=== PATIENT | male | born 1965 | race Caucasian/White ===

== ENCOUNTER 2018-11-03 04:12 | Emergency (ER) | payer OTHER, BC ==
--- OUTSIDE RECORDS SUMMARY | 2018-11-03 04:15 | XMS REPORT | Clinical Summary ---
:1965 Author Organization [facility] Address [address] [place] [address] Care Team Providers Name Role Phone Zuhair Rubi MD Primary Care Provider Allergies Active Allergy Reactions Severity Noted Date Comments Codeine GI Intolerance 08/04/2018 Medications Medication Sig Dispensed Refills Start Date End Date Status ciprofloxacin (CIPRO) Take 1 tablet 14 tablet 0 08/04/2018 08/11/2018 500 MG tablet (500 mg total) by mouth 2 (two) times a day for 7 days. metroNIDAZOLE (FLAGYL) Take 1 tablet 14 tablet 0 08/04/2018 08/11/2018 500 MG tablet (500 mg total) by mouth 2 (two) times a day for 7 days. 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 (Primary Dx) 08/04/2018 - Emergency Emergency Medicine Jeromy Mathur Diverticulitis ( Primary Dx); 08/05/2018 MD Lorri Colostomy in place (HCC) after 11/02/2017 Family History Medical History Relation Name Comments Diabetes Mother Hypertension Mother Relation Name Status Comments Mother Social History Tobacco Use Types Packs/Day Years Used Date Current Every Day Smoker Smokeless Tobacco: Never Used Alcohol Use Drinks/Week oz/Week Comments Yes Sex Assigned at Date Recorded Not on file Job Start Date Occupation Industry Not on file Not on file Not on file Travel History Travel Start Travel End No recent travel history available. Last Filed Vital Signs Vital Sign Reading Time Taken Blood Pressure 110/83 08/10/2018 12:44 PM [facility] Pulse 69 08/10/2018 12:44 PM [employer] [employer] Temperature 36.7 C (98.1 F) 08/04/2018 6:27 PM [facility] Respiratory Rate 18 08/04/2018 6:27 PM [employer] [employer] Oxygen Saturation 97% 08/04/2018 6:27 PM [employer] [employer] Inhaled Oxygen Concentration - - Weight 109 kg (240 lb) 08/04/2018 6:30 PM [employer] Height 175.3 cm (5' 9") 08/04/2018 6:30 PM [facility] Body Mass Index 35.44 08/04/2018 6:30 PM [facility] Plan of Treatment Health Maintenance Due Date Last Done Comments COLON CANCER SCREENING 2014 SHINGLES VACCINES (#1) 2014 INFLUENZA VACCINE 02/24/2019 Procedures Procedure Name Priority Date/Time Associated Comments Diagnosis CT ABDOMEN PELVIS WO STAT 08/04/2018 10:48 Results for this CONTRAST PM [facility] procedure are in the results section. ESTIMATED GFR STAT 08/04/2018 8:51 Results for this PM [facility] procedure are in the results section. COMPREHENSIVE STAT 08/04/2018 8:51 Results for this METABOLIC PANEL PM [facility] [employer] procedure are in the results section. HC COMPLETE BLD COUNT STAT 08/04/2018 8:51 Results for this W/AUTO DIFF PM [facility] procedure are in the results section. XR ABDOMEN 2 VW AP W STAT 08/04/2018 7:20 Results for this UPRIGHT AND/OR PM [facility] [employer] procedure are in DECUBITUS the results section. after 11/02/[address] Abdomen Pelvis Wo Contrast (08/04/2018 10:48 PM [facility]) Narrative Performed At EXAM: CT ABDOMEN PELVIS WO CONTRAST HM RADIANT CLINICAL HISTORY:constipation. Hx of colectomylooking for obstruction TECHNIQUE: Multidetector CT of the abdomen and pelvis was performed without intravenous administration of iodinated contrast with multiplanar reformats. CT scans are performed using radiation dose reduction techniques (iterative reconstruction and/or automated exposure control). Technical factors are evaluated and adjusted to ensure appropriate moderation of exposure. Automated dose management technology is applied to adjust radiation exposure while achieving a diagnostic quality image. COMPARISON:Abdominal radiograph, same day FINDINGS: Evaluation of the parenchyma, lymph nodes, and the vessels is limited without intravenous contrast. Lung bases: Dependent atelectasis. Otherwise unremarkable. Liver:No evidence for suspicious focal hepatic lesion. Gallbladder and biliary:Unremarkable. Pancreas:No focal pancreatic lesion identified. No pancreatic duct dilatation. Spleen: Unremarkable. Gastrointestinal:Stomach is unremarkable in appearance. Large and small bowel are normal in caliber. Appendix is visualized and appears normal. Scattered colonic diverticula identified. There is distal descending/proximal sigmoid diverticular inflammatory changes (for example, axial image 97, series 2), consistent with acute diverticulitis. No pericolonic abscess or fistulization is identified. No perforation is seen. Distal sigmoid primary anastomosis is also noted. Peritoneum:No ascites or free air. Adrenals: Unremarkable. Kidneys and ureters:There is no evidence for large irregular renal mass, obstructing calculi, hydronephrosis, or hydroureter. Urinary bladder: Unremarkable. Reproductive organs:Prostate is unremarkable in appearance. Lymph nodes:No enlarged lymph nodes in the abdomen or pelvis. Vascular:Unremarkable, though evaluation of vessel lumens is limited due to lack of IV contrast. Abdominal wall:Unremarkable. Bones:No acute osseous abnormality identified. IMPRESSION: 1.Scattered colonic diverticula identified. There is distal descending/proximal sigmoid diverticular inflammatory changes (for example, axial image 97, series 2), consistent with acute diverticulitis. No pericolonic abscess or fistulization is identified. No perforation is seen. [facility]-[id number] Procedure Note [facility], Radiology Results Incoming - 08/04/2018 11:00 PM [facility] EXAM: CT ABDOMEN PELVIS WO CONTRAST CLINICAL HISTORY: constipation. Hx of colectomy looking for obstruction TECHNIQUE: Multidetector CT of the abdomen and pelvis was performed without intravenous administration of iodinated contrast with multiplanar reformats. CT scans are performed using radiation dose reduction techniques (iterative reconstruction and/or automated exposure control). Technical factors are evaluated and adjusted to ensure appropriate moderation of exposure. Automated dose management technology is applied to adjust radiation exposure while achieving a diagnostic quality image. COMPARISON: Abdominal radiograph, same day FINDINGS: Evaluation of the parenchyma, lymph nodes, and the vessels is limited without intravenous contrast. Lung bases: Dependent atelectasis. Otherwise unremarkable. Liver: No evidence for suspicious focal hepatic lesion. Gallbladder and biliary: Unremarkable. Pancreas: No focal pancreatic lesion identified. No pancreatic duct dilatation. Spleen: Unremarkable. Gastrointestinal: Stomach is unremarkable in appearance. Large and small bowel are normal in caliber. Appendix is visualized and appears normal. Scattered colonic diverticula identified. There is distal descending/proximal sigmoid diverticular inflammatory changes (for example, axial image 97, series 2), consistent with acute diverticulitis. No pericolonic abscess or fistulization is identified. No perforation is seen. Distal sigmoid primary anastomosis is also noted. Peritoneum: No ascites or free air. Adrenals: Unremarkable. Kidneys and ureters: There is no evidence for large irregular renal mass, obstructing calculi, hydronephrosis, or hydroureter. Urinary bladder: Unremarkable. Reproductive organs: Prostate is unremarkable in appearance. Lymph nodes: No enlarged lymph nodes in the abdomen or pelvis. Vascular: Unremarkable, though evaluation of vessel lumens is limited due to lack of IV contrast. Abdominal wall: Unremarkable. Bones: No acute osseous abnormality identified. IMPRESSION: 1. Scattered colonic diverticula identified. There is distal descending/ proximal sigmoid diverticular inflammatory changes (for example, axial image 97 , series 2), consistent with acute diverticulitis. No pericolonic abscess or fistulization is identified. No perforation is seen. [facility]-[id number] Performing Organization Address City/[facility]/Zipcode Phone Number [facility] [address] [place] [address] Estimated GFR (08/04/2018 8:51 PM [employer] [employer]) Estimated GFR >=90 mL/min/1.73 m2 [facility] Comment: HOSPITAL CatergoryUnitsInterpretation G1 >=90 Normal or high G2 60-89Mildly decreased [id number] to moderately decreased [id number] to severely decreased G4 15-29Severely decreased G5 <15Kidney failure The eGFR was calculated using the Chronic Kidney Disease Epidemiology Collaboration (CKD-EPI) equation. Interpretation is based on recommendations of the National Kidney Foundation-Kidney Disease Outcomes Quality Initiative (NKF-KDOQI) published in 2014. Specimen Plasma specimen Performing Organization Address [facility] Cent[facility] Phone Number [facility] DEPARTMENT OF PATHOLOGY AND [address] [place] [address] GENOMIC MEDICINE [address] [address] CBC with platelet and differential (08/04/2018 8:51 PM [employer] [employer]) WBC 9.05 4.50 - 11.00 k/uL [facility] RBC 4.29 (L) 4.40 - 6.00 m/uL [facility] HGB 14.8 14.0 - 18.0 g/dL [facility] HCT 44.3 41.0 - 51.0 % [facility] MCV 103.3 (H) 82.0 - 100.0 fL [facility] MCH 34.5 (H) 27.0 - 34.0 pg [facility] MCHC 33.4 31.0 - 37.0 g/dL [facility] RDW - SD 49.1 37.0 - 55.0 fL [facility] MPV 11.1 8.8 - 13.2 fL [facility] Platelet count 182 150 - 400 k/uL [facility] Nucleated RBC 0.00 /100 WBC [facility] Neutrophils 58.4 39.0 - 69.0 % [facility] Lymphocytes 27.1 25.0 - 45.0 % [facility] Monocytes 11.9 (H) 0.0 - 10.0 % [facility] Eosinophils 1.5 0.0 - 5.0 % [facility] Basophils 0.7 0.0 - 1.0 % [facility] Immature granulocytes 0.4Comment: "Immature 0.0 - 1.0 % [facility]" [facility] (promyelocytes, myelocytes, metamyelocytes) Specimen Blood Performing Organization Address City/State/Zipcode Phone Number [facility] DEPARTMENT OF PATHOLOGY AND [address] [place] [address] GENOM[address] MEDICINE [address] [address] Comprehensive metabolic panel (08/04/2018 8:51 PM [facility]) Sodium 137 135 - 148 mEq/L [facility] Potassium 4.0 3.5 - 5.0 mEq/L [facility] Chloride 96 (L) 98 - 112 mEq/L [facility] CO2 26 24 - 31 mEq/L [facility] Anion gap 15@ANIO 7 - 15 mEq/L [facility] BUN 11 6 - 20 mg/dL [facility] Creatinine 0.95 0.70 - 1.20 mg/dL [facility] Glucose 128 (H) 65 - 99 mg/dL [facility] Calcium 9.4 8.3 - 10.2 mg/dL [facility] Protein 7.4 6.3 - 8.3 g/dL [facility] Comment: HOSPITAL Reasnor 4.6-7.0 g/dL 1 week 4.4-7.6 g/dL 7 months-1year5.1-7.3 g/dL 1-2 years5.6-7.5 g/dL >3 years6.0-8.0 g/dL 18-150 6.3-8.3 g/dL Albumin 3.2 (L) 3.5 - 5.0 g/dL [facility] A/G ratio 0.8 0.7 - 3.8 [facility] Alkaline phosphatase 54 40 - 129 U/L [facility] AST 23 10 - 50 U/L [facility] ALT 32 5 - 50 U/L [facility] Total bilirubin 0.6 0.0 - 1.2 mg/dL [facility] Specimen Plasma specimen Performing Organization Address [facility] Phone Number [facility] DEPARTMENT OF PATHOLOGY AND [address] [place] [address] GENOMIC MEDICINE [facility] [address] [place] [address] XR Abdomen 2 Vw Ap W Upright And/Or Decubitus (08/04/2018 7:20 PM [facility]) Narrative Performed At EXAMINATION:XR ABDOMEN 2 VW AP W UPRIGHT AND OR DECUBITUS RADIANT CLINICAL HISTORY:Abd painunspecified COMPARISON:None. FINDINGS: There is gas in the colon. Mildly prominent loops of small bowel in left upper quadrant are nonspecific. There is no free air. IMPRESSION: As above [id number] Procedure Note Interface, Radiology Results Incoming - 08/04/2018 7:28 PM [facility] [employer] EXAMINATION: XR ABDOMEN 2 VW AP W UPRIGHT AND OR DECUBITUS CLINICAL HISTORY: Abd pain unspecified COMPARISON: None. FINDINGS: There is gas in the colon. Mildly prominent loops of small bowel in left upper quadrant are nonspecific. There is no free air. IMPRESSION: As above [id number] Performing Organization Address [facility] Phone Number [facility] [address] [place] [address] after 11/02/2017 Insurance Payer Benefit Plan / Group Subscriber ID Type Phone Address AETNA AETNA PPO OPEN CHOICE xxxxxxxxxx PPO BCBS BCBS CHOICE PPO/F[employer]ERAL EMPL PPO xxxxxxxxxxxx PPO Advance Directives Patient has advance care planning documents on file. For more information, please contact:Antelmo Posadas[address] [place] [address]
[2018-11-03] MEDS ORDERED: FAMOTIDINE 20 MG/2 ML VIAL IV ONE (05:12)
[2018-11-03] MEDS ORDERED: HYDROMORPHONE HCL 0.5 MG/0.5 ML INJ ONE (05:12)
[2018-11-03] MEDS ORDERED: ONDANSETRON 4 MG/2 ML VIAL ONE (05:15)
[2018-11-03 05:51] LABS: Absolute Lymphocytes (CBC) 2.3 K/uL (0.7-4.9); Absolute Monocytes 0.5 K/uL (0.1-1.3); Absolute Neutrophil 2.1 K/uL (1.8-8.0); Basophils % 1.2 % (0-1.3); Eosinophils % 5.1 % (0-4.4); Hematocrit 46.3 % (39.6-49.0); Lymphocytes % 43.3 % (15.3-44.8); MPV 9.5 fL (7.6-11.3); Monocytes % 10.1 % (3.3-12.3)
[2018-11-03 05:52] LABS: Albumin 3.7 g/dL (3.4-5.0); Bilirubin Direct 0.3 mg/dL (0-0.2); Bilirubin Total 0.6 mg/dL (0.2-1.0); Potassium 3.8 mmol/L (3.5-5.1); Protein, Total 7.6 g/dL (6.4-8.2)
[2018-11-03] MEDS ORDERED: PIPER/TAZO/NS 3.375gm 3.375 GM/100 ML BAG ONE (07:06)
--- NOTE | 2018-11-03 07:35 | ER ---
Nurse's Notes [facility] Name: Devonte Vaca Age: 53 yrs Sex: Male : 1965 Arrival Date: 11/03/2018 Time: 04:13 Bed 7 Private MD: Zuhair Rubi Diagnosis: Abdominal tenderness;Cholelithiasis Presentation: 11/03 04:34 Presenting complaint: Patient states: sudden onset of RUQ pain that woke him up from aa1 sleep at approx 0200 this am. Denies N/V/D. Transition of care: patient was not received from another setting of care. Onset of symptoms was November 03, 2018 at 02:00. Risk Assessment: Do you want to hurt yourself or someone else? Patient reports no desire to harm self or others. Initial Sepsis Screen: Does the patient meet any 2 criteria? No. Patient's initial sepsis screen is negative. Does the patient have a suspected source of infection? Yes: Acute abdominal pain. Care prior to arrival: None. 04:34 Method Of Arrival: Ambulatory aa1 04:34 Acuity: LIANG 3 aa1 Triage Assessment: 07:00 General: Appears in no apparent distress. comfortable, Behavior is calm, cooperative, bp appropriate for age. Historical: - Allergies: 04:36 Codeine; aa1 - Home Meds: 04:36 Unable to obtain [Active]; aa1 - PMHx: 04:36 Diverticulitis; High Cholesterol; Hypertension; melanoma; aa1 - PSHx: 04:36 Partial colon removal; aa1 - Immunization history:: Flu vaccine is not up to date. - Social history:: Smoking status: Patient/guardian denies using tobacco. - Ebola Screening: : No symptoms or risks identified at this time. Screenin:37 Abuse screen: Denies threats or abuse. Denies injuries from another. Nutritional aa1 screening: No deficits noted. Tuberculosis screening: No symptoms or risk factors identified. Fall Risk None identified. Assessment: 04:37 General: Appears in no apparent distress. comfortable, Behavior is calm, cooperative, aa1 appropriate for age. Pain: Complains of pain in right upper quadrant Pain currently is 9 out of 10 on a pain scale. Pain began 2 hours ago. Is continuous. Neuro: Level of Consciousness is awake, alert, obeys commands, Oriented to person, place, time, situation, Moves all extremities. Full function Gait is steady. Cardiovascular: Denies chest pain, palpitations, shortness of breath, Heart tones S1 S2 present. Respiratory: Airway is patent Respiratory effort is even, unlabored, Respiratory pattern is regular, symmetrical. GI: Reports upper abdominal pain, Patient currently denies diarrhea, nausea, vomiting. : No signs and/or symptoms were reported regarding the genitourinary system. EENT: No signs and/or symptoms were reported regarding the EENT system. Derm: Skin is intact, is healthy with good turgor, Skin is pink, warm \T\ dry. Musculoskeletal: Circulation, motion, and sensation intact. Capillary refill < 3 seconds. 05:54 Reassessment: Patient appears in no apparent distress at this time. Patient and/or aa1 family updated on plan of care and expected duration. Pain level reassessed. Patient is alert, oriented x 3, equal unlabored respirations, skin warm/dry/pink. Awaiting CT scan. 06:39 Reassessment: Patient appears in no apparent distress at this time. Patient and/or aa1 family updated on plan of care and expected duration. Pain level reassessed. Patient is alert, oriented x 3, equal unlabored respirations, skin warm/dry/pink. Pt taken to CT at this time. 07:00 Reassessment: RECD REPORT FROM NENO LARA. 53YO WM P/W R FLANK PAIN, R/O bp NEPHROLITHIASIS. RESULTS PENDING. 08:01 Reassessment: PT D/C HOME AMBULATORY WITH FAMILY, DX WITH CHOLELITHIASIS. bp Vital Signs: 04:36 BP 129 / 87; Pulse 65; Resp 18; Temp 97.2; Pulse Ox 95% on R/A; Weight 106.59 kg; aa1 Height 5 ft. 9 in. (175.26 cm); Pain 9/10; 05:54 BP 117 / 75; Pulse 66; Resp 16; Pulse Ox 94% on R/A; aa1 06:38 BP 106 / 74; Pulse 76; Resp 16; Pulse Ox 92% on R/A; aa1 07:00 BP 99 / 74; Pulse 69; Resp 14; Pulse Ox 95% ; bp 07:57 BP 104 / 67 Supine; Pulse 82; Resp 16; Pulse Ox 95% on R/A; dh3 07:59 BP 116 / 80 Sitting; Pulse 89; Resp 18; Pulse Ox 94% on R/A; dh3 08:01 BP 108 / 82 Standing; Pulse 88; Resp 19; Pulse Ox 97% on R/A; dh3 04:36 Body Mass Index 34.70 (106.59 kg, 175.26 cm) aa1 ED Course: 04:13 Patient arrived in ED. am2 04:14 Zuhair Rubi MD is Private Physician. am2 04:33 Leoncio Ordaz MD is Attending Physician. ahsan 04:35 Triage completed. aa1 04:37 Arm band placed on right wrist. aa1 04:37 Patient has correct armband on for positive identification. Placed in gown. Bed in low aa1 position. Call light in reach. Pulse ox on. NIBP on. 05:00 Inserted saline lock: 20 gauge in right antecubital area, using aseptic technique. oe Blood collected. 05:16 X-ray completed. Portable x-ray completed in exam room. Patient tolerated procedure kw well. 05:17 Chest Single View XRAY In Process Unspecified. EDMS 05:55 CT completed. Patient tolerated procedure well. Patient moved to CT via wheelchair. eh Patient moved back from CT. 06:05 CT Stone Protocol In Process Unspecified. EDMS 07:24 Zuhair Molina, RN is Primary Nurse. bp 07:34 Zuhair Rubi MD is Referral Physician. ahsan 07:34 Fly Lim MD is Referral Physician. ahsan 07:38 US Abdomen Limited In Process Unspecified. EDMS 08:01 No provider procedures requiring assistance completed. IV discontinued, intact, bp bleeding controlled, No redness/swelling at site. Pressure dressing applied. Administered Medications: 05:05 Drug: Zofran 4 mg Route: IVP; Site: right antecubital; aa1 07:02 Follow up: Response: No adverse reaction; Marked relief of symptoms aa1 05:07 Drug: Pepcid 20 mg Route: IVP; Site: right antecubital; aa1 07:02 Follow up: Response: No adverse reaction; Marked relief of symptoms aa1 05:08 Drug: Dilaudid 0.5 mg Route: IVP; Site: right antecubital; aa1 07:02 Follow up: Response: No adverse reaction; Pain is decreased aa1 07:02 Drug: Zosyn 3.375 grams Route: IVPB; Infused Over: 60 mins; Site: right antecubital; aa1 07:30 Follow up: IV Status: Completed infusion; IV Intake: 100ml bp Intake: 07:30 IV: 100ml; Total: 100ml. bp Outcome: 07:34 Discharge ordered by . ahsan 08:01 Discharged to home ambulatory, with family. bp 08:01 Condition: stable 08:01 Discharge instructions given to patient, Instructed on discharge instructions, follow up and referral plans. medication usage, Demonstrated understanding of instructions, follow-up care, medications, Prescriptions given X 3. 08:08 Patient left the ED. bp Signatures: Dispatcher [employer] EDMS Neno Santizo RN RN aa1 Leoncio Ordaz MD MD cha Hagler, Letitia Montano Orlando oe Moreno, Amanda 2 Gin Avery 3 Zuhair Molina RN RN bp Corrections: (The following items were deleted from the chart) 05:13 05:12 Inserted saline lock: 20 gauge in right antecubital area, using aseptic oe technique. Blood collected. oe 06:39 05:54 Reassessment: Patient appears in no apparent distress at this time. Patient aa1 and/or family updated on plan of care and expected duration. Pain level reassessed. Patient is alert, oriented x 3, equal unlabored respirations, skin warm/dry/pink. Awaiting CT results aa1
--- NOTE | 2018-11-03 07:35 | EDPHYS ---
Physician Documentation [facility] Name: Devonte Vaca Age: 53 yrs Sex: Male : 1965 Arrival Date: 11/03/2018 Time: 04:13 Bed 7 Private MD: Zuhair Rubi ED Physician Leoncio Ordaz HPI: 11/03 04:53 This 53 yrs old Male presents to ER via Ambulatory with complaints of Flank ahsan Pain - right side. 04:53 The patient complains of pain in the right mid back and right low back. The pain does ahsan not radiate. Onset: The symptoms/episode began/occurred this morning. Modifying factors: The symptoms are alleviated by nothing. the symptoms are aggravated by movement, palpation/percussion. Associated signs and symptoms: The patient has no apparent associated signs or symptoms. Severity of pain: At its worst the pain was moderate. The patient has experienced similar episodes in the past, a few times. Historical: - Allergies: 04:36 Codeine; aa1 - Home Meds: 04:36 Unable to obtain [Active]; aa1 - PMHx: 04:36 Diverticulitis; High Cholesterol; Hypertension; melanoma; aa1 - PSHx: 04:36 Partial colon removal; aa1 - Immunization history:: Flu vaccine is not up to date. - Social history:: Smoking status: Patient/guardian denies using tobacco. - Ebola Screening: : No symptoms or risks identified at this time. ROS: 04:54 Constitutional: Negative for fever, chills, and weight loss, Eyes: Negative for injury, hasan pain, redness, and discharge, ENT: Negative for injury, pain, and discharge, Neck: Negative for injury, pain, and swelling, Cardiovascular: Negative for chest pain, palpitations, and edema, Respiratory: Negative for shortness of breath, cough, wheezing, and pleuritic chest pain, Back: Negative for injury and pain, : Negative for injury, bleeding, discharge, and swelling, MS/Extremity: Negative for injury and deformity, Skin: Negative for injury, rash, and discoloration, Neuro: Negative for headache, weakness, numbness, tingling, and seizure, Psych: Negative for depression, anxiety, suicide ideation, homicidal ideation, and hallucinations, Allergy/Immunology: Negative for hives, rash, and allergies, Endocrine: Negative for neck swelling, polydipsia, polyuria, polyphagia, and marked weight changes, Hematologic/Lymphatic: Negative for swollen nodes, abnormal bleeding, and unusual bruising. 04:54 Abdomen/GI: Positive for abdominal pain, of the right upper quadrant. Exam: 04:54 Constitutional: This is a well developed, well nourished patient who is awake, alert, ahsan and in no acute distress. Head/Face: Normocephalic, atraumatic. Eyes: Pupils equal round and reactive to light, extra-ocular motions intact. Lids and lashes normal. Conjunctiva and sclera are non-icteric and not injected. Cornea within normal limits. Periorbital areas with no swelling, redness, or edema. ENT: Nares patent. No nasal discharge, no septal abnormalities noted. Tympanic membranes are normal and external auditory canals are clear. Oropharynx with no redness, swelling, or masses, exudates, or evidence of obstruction, uvula midline. Mucous membranes moist. Neck: Trachea midline, no thyromegaly or masses palpated, and no cervical lymphadenopathy. Supple, full range of motion without nuchal rigidity, or vertebral point tenderness. No Meningismus. Chest/axilla: Normal chest wall appearance and motion. Nontender with no deformity. No lesions are appreciated. Cardiovascular: Regular rate and rhythm with a normal S1 and S2. No gallops, murmurs, or rubs. Normal PMI, no JVD. No pulse deficits. Respiratory: Lungs have equal breath sounds bilaterally, clear to auscultation and percussion. No rales, rhonchi or wheezes noted. No increased work of breathing, no retractions or nasal flaring. Back: No spinal tenderness. No costovertebral tenderness. Full range of motion. Male : Normal genitalia with no discharge or lesions. Skin: Warm, dry with normal turgor. Normal color with no rashes, no lesions, and no evidence of cellulitis. MS/ Extremity: Pulses equal, no cyanosis. Neurovascular intact. Full, normal range of motion. Neuro: Awake and alert, GCS 15, oriented to person, place, time, and situation. Cranial nerves II-XII grossly intact. Motor strength 5/5 in all extremities. Sensory grossly intact. Cerebellar exam normal. Normal gait. Psych: Awake, alert, with orientation to person, place and time. Behavior, mood, and affect are within normal limits. 04:54 Abdomen/GI: Inspection: distension, Bowel sounds: normal, Liver: no appreciated palpable abnormalities, Hernia: not appreciated. 04:56 Abdomen/GI: Inspection: Bowel sounds: Palpation: mild abdominal tenderness, moderate ahsan abdominal tenderness, in the right upper quadrant. 07:32 Musculoskeletal/extremity: DVT Exam: No signs of deep vein thrombosis. no pain, no ahsan swelling, no tenderness, negative Homans' sign noted on exam, no appreciated bluish discoloration, no erythema, no increased warmth. 07:33 Musculoskeletal/extremity: DVT Exam: [facility] Vital Signs: 04:36 BP 129 / 87; Pulse 65; Resp 18; Temp 97.2; Pulse Ox 95% on R/A; Weight 106.59 kg; aa1 Height 5 ft. 9 in. (175.26 cm); Pain 9/10; 05:54 BP 117 / 75; Pulse 66; Resp 16; Pulse Ox 94% on R/A; aa1 06:38 BP 106 / 74; Pulse 76; Resp 16; Pulse Ox 92% on R/A; aa1 07:00 BP 99 / 74; Pulse 69; Resp 14; Pulse Ox 95% ; bp 07:57 BP 104 / 67 Supine; Pulse 82; Resp 16; Pulse Ox 95% on R/A; dh3 07:59 BP 116 / 80 Sitting; Pulse 89; Resp 18; Pulse Ox 94% on R/A; dh3 08:01 BP 108 / 82 Standing; Pulse 88; Resp 19; Pulse Ox 97% on R/A; dh3 04:36 Body Mass Index 34.70 (106.59 kg, 175.26 cm) [facility] MDM: 04:33 Patient medically screened. [facility] 04:56 Data reviewed: vital signs, nurses notes, lab test result(s), EKG, radiologic studies, [facility] plain films. 11/03 04:34 Order name: Basic Metabolic Panel; Complete Time: 06:17 aa11/03 04:34 Order name: CBC with Diff; Complete Time: 06:17 aa11/03 04:34 Order name: Creatinine for Radiology; Complete Time: 06:17 aa11/03 04:34 Order name: Hepatic Function; Complete Time: 06:17 aa11/03 04:34 Order name: Lipase; Complete Time: 06:17 aa1 11/03 05:11 Order name: Troponin I; Complete Time: 08:04 [facility] 11/03 04:52 Order name: Chest Single View XRAY [facility] 11/03 04:52 Order name: EKG; Complete Time: 04:53 [facility] 11/03 04:52 Order name: US Abdomen Limited; Complete Time: 08:04 [facility] 11/03 05:12 Order name: CT Stone Protocol [facility] 11/03 04:34 Order name: IV Saline Lock; Complete Time: 04:55 [facility] 11/03 04:34 Order name: Labs collected and sent; Complete Time: 04:55 [facility] 11/03 04:52 Order name: EKG - Nurse/Tech; Complete Time: 05:10 [facility] 11/03 07:33 Order name: Orthostatics; Complete Time: 07:59 [facility] Administered Medications: 05:05 Drug: Zofran 4 mg Route: IVP; Site: right antecubital; aa1 07:02 Follow up: Response: No adverse reaction; Marked relief of symptoms aa1 05:07 Drug: Pepcid 20 mg Route: IVP; Site: right antecubital; aa1 07:02 Follow up: Response: No adverse reaction; Marked relief of symptoms aa1 05:08 Drug: Dilaudid 0.5 mg Route: IVP; Site: right antecubital; aa1 07:02 Follow up: Response: No adverse reaction; Pain is decreased aa1 07:02 Drug: Zosyn 3.375 grams Route: IVPB; Infused Over: 60 mins; Site: right antecubital; aa1 07:30 Follow up: IV Status: Completed infusion; IV Intake: 100ml bp Disposition: 11/03/18 07:34 Discharged to Home. Impression: Abdominal tenderness, Cholelithiasis. - Condition is Stable. - Discharge Instructions: Abdominal Pain, Adult, Cholelithiasis, Irno-ea-Buhj, Abdominal Pain, Adult, Qfmg-it-Glui. - Prescriptions for Bentyl 20 mg Oral Tablet - take 1 tablet by ORAL route every 6 hours As needed; 20 tablet. Pepcid 20 mg Oral Tablet - take 1 tablet by ORAL route every 12 hours for 10 days; 20 tablet. Zofran 4 mg Oral Tablet - take 1 tablet by ORAL route every 12 hours As needed; 20 tablet. - Medication Reconciliation Form, Thank You Letter, Antibiotic Education, Prescription Opioid Use form. - Follow up: Zuhair Rubi; When: 2 - 3 days; Reason: Recheck today's complaints, Continuance of care, Re-evaluation by your physician. Follow up: Dr. Fly Lim; When: As needed; Reason: Recheck today's complaints, Re-evaluation by your physician. - Problem is new. - Symptoms have improved. Signatures: Dispatcher [employer] EDMS Victoria Santizo RN RN aa1 Leoncio Ordaz MD MD cha Peltier, Brian, RN RN bp Corrections: (The following items were deleted from the chart) 08:08 07:34 11/03/2018 07:34 Discharged to Home. Impression: Abdominal tenderness; bp Cholelithiasis. Condition is Stable. Discharge Instructions: Abdominal Pain, Adult, Cholelithiasis, Crct-[id number], Abdominal Pain, Adult, Ftzt-rv-[id number]. Prescriptions for Bentyl 20 mg Oral Tablet - take 1 tablet by ORAL route every 6 hours As needed; 20 tablet, Pepcid 20 mg Oral Tablet - take 1 tablet by ORAL route every 12 hours for 10 days; 20 tablet, Zofran 4 mg Oral Tablet - take 1 tablet by ORAL route every 12 hours As needed; 20 tablet. and Forms are Medication Reconciliation Form, Thank You Letter, Antibiotic Education, Prescription Opioid Use. Follow up: Zuhair Rubi; When: 2 - 3 days; Reason: Recheck today's complaints, Continuance of care, Re-evaluation by your physician. Follow up: Dr. Fly Lim; When: As needed; Reason: Recheck today's complaints, Re-evaluation by your physician. Problem is new. Symptoms have improved. ahsan
--- NOTE | 2018-11-03 07:50 | RAD REPORT ---
EXAM DESCRIPTION: US - Abdomen Exam Limited - 11/03/2018 7:18 am CLINICAL HISTORY: Abdominal pain. COMPARISON: November 03, 2018 cat scan FINDINGS: Mild gallbladder distention The gallbladder wall is not thickened. Multiple small gallstones The biliary tree is normal caliber. IMPRESSION: Mild gallbladder distention with small gallstones
--- NOTE | 2018-11-03 08:17 | RAD REPORT ---
EXAM DESCRIPTION: Peter Single View11/03/2018 5:17 am CLINICAL HISTORY: Abdominal pain. COMPARISON: 2012 FINDINGS: The lungs appear clear of acute infiltrate. The heart is normal size IMPRESSION: No acute abnormalities displayed
--- NOTE | 2018-11-03 09:53 | RAD REPORT ---
EXAM DESCRIPTION: CT - Stone Protocol - 11/03/2018 6:24 am CLINICAL HISTORY: The patient is 53 years old and is Male; Abd pain;Flank pain TECHNIQUE: Axial computed tomography images of the abdomen and pelvis without intravenous contrast. Sagittal and coronal reformatted images were created and reviewed. This CT exam was performed usi ng one or more of the following dose reduction techniques: automated exposure control, adjustment o f the mA and/or kV according to patient size, and/or use of iterative reconstruction technique. COMPARISON: Abdomen CT September 19, 2017. FINDINGS: LUNG BASES: Unremarkable. No mass. No consolidation. ABDOMEN: LIVER: The liver is enlarged and mildly fatty. GALLBLADDER AND BILE DUCTS: The gallbladder is distended. No calcified gallstones or ductal dila tation is seen. PANCREAS: Unremarkable. No ductal dilation. SPLEEN: Unremarkable. ADRENALS: Unremarkable. No mass. KIDNEYS AND URETERS: No obstructing stones. No hydronephrosis. STOMACH AND BOWEL: Postsurgical change of the rectosigmoid colon is present. Stool is noted thro ughout the colon. Scattered colonic diverticula are seen without surrounding inflammation. The stomac h is significantly distended with food contents. The small bowel is normal in caliber. There is no max wel obstruction. PELVIS: APPENDIX: The appendix is normal in caliber without surrounding inflammation. BLADDER: Unremarkable. No stones. REPRODUCTIVE: Unremarkable as visualized. ABDOMEN and PELVIS: INTRAPERITONEAL SPACE: Unremarkable. No free air. No significant fluid collection. BONES/JOINTS: Mild degenerative change of the spine is present. SOFT TISSUES: The soft tissues are normal. VASCULATURE: Unremarkable. No abdominal aortic aneurysm. LYMPH NODES: Unremarkable. No enlarged lymph nodes. IMPRESSION: 1. No obstructing renal or ureteral calculus. 2. Colonic diverticulosis. 3. Distended gallbladder. No calcified gallstones. Electronically signed by: Merline Cason MD 11/03/2018 6:07 AM CDT Due to temporary technical issues with the PACS/Fluency reporting system, reports are being signed by the in house radiologist as a courtesy to ensure prompt reporting. The interpreting radiologist is f ully responsible for the content of the report.
--- NOTE | 2018-11-03 10:43 | EKG ---
Test Date: 2018-11-03 Test Time: 05:05:26 Senior Research Manager: EVITA MEASUREMENT RESULTS: Intervals: Rate: 67 MS: 186 QRSD: 84 QT: 400 QTc: 422 [place]: P: 48 MS: 186 QRS: -22 T: -10 INTERPRETIVE STATEMENTS: Normal sinus rhythm Cannot rule out Anterior infarct, age undetermined Abnormal ECG Compared to ECG 12/26/2003 13:59:00 questionable myocardial infarct finding now present Electronically Signed On 11-03-18 10:42:25 CDT by Derek Sin
== END 2018-11-03 08:08 | disposition home or self-care (01) ==
LOC: ER 04:12
DX: K80.20 Calculus of gallbladder without cholecystitis without obstruction (principal); K57.30 Diverticulosis of large intestine without perforation or abscess without bleeding; E78.00 Pure hypercholesterolemia, unspecified; I10 Essential (primary) hypertension; Z88.5 Allergy status to narcotic agent
CPT/HCPCS: 36415; 71045; 74176; 76377; 76705; 80048; 80076; 83690; 84484; 85025; 93005; 96365; 96375; 99284; J1170; J2405; J2543

== ENCOUNTER 2018-11-11 08:05 | Day surgery (SDC) | payer OTHER, BC ==
[2018-11-10 10:29] LABS: Absolute Lymphocytes (CBC) 2.6 K/uL (0.7-4.9); Absolute Monocytes 1.1 K/uL (0.1-1.3); Absolute Neutrophil 4.3 K/uL (1.8-8.0); Basophils % 0.8 % (0-1.3); Eosinophils % 3.1 % (0-4.4); Hematocrit 47.3 % (39.6-49.0); Lymphocytes % 31.3 % (15.3-44.8); MPV 9.3 fL (7.6-11.3); RBC Red Blood Cell Count 4.73 M/uL (4.33-5.43)
[~2018-11-11 08:05] MED LIST: CEFOXITIN/SWI 2gm 2 GM/20 ML SYR IV SCH
--- OUTSIDE RECORDS SUMMARY | 2018-11-11 08:09 | XMS REPORT | Clinical Summary ---
:1965 Author Organization [facility] Address [address] [place] [address] Care Team Providers Name Role Phone Zuhair [...] MD Lorri Colostomy in place (HCC) after 11/10/2017 Family History Medical History Relation Name Comments [...] Taken Blood Pressure 110/83 08/10/2018 12:44 PM SLIP MIXER Pulse 69 08/10/2018 12:44 PM SLIP MIXER Temperature 36.7 C (98.1 F) 08/04/2018 6:27 PM SLIP MIXER Respiratory Rate 18 08/04/2018 6:27 PM SLIP MIXER Oxygen Saturation 97% 08/04/2018 6:27 PM SLIP MIXER Inhaled Oxygen Concentration - - Weight 109 kg (240 lb) 08/04/2018 6:30 PM SLIP MIXER Height 175.3 cm (5' 9") 08/04/2018 6:30 PM SLIP MIXER Body Mass Index 35.44 08/04/2018 6:30 PM SLIP MIXER Plan of Treatment Health Maintenance Due Date Last Done Comments COLON CANCER SCREENING 2014 SHINGLES VACCINES (#1) 2014 INFLUENZA VACCINE 02/24/2019 Procedures Procedure Name Priority Date/Time Associated Comments Diagnosis CT ABDOMEN PELVIS WO STAT 08/04/2018 10:48 Results for this CONTRAST PM SLIP MIXER procedure are in the results section. ESTIMATED GFR STAT 08/04/2018 8:51 Results for this PM SLIP MIXER procedure are in the results section. COMPREHENSIVE STAT 08/04/2018 8:51 Results for this METABOLIC PANEL PM [facility]IP MIXER procedure are in the results section. HC COMPLETE BLD COUNT STAT 08/04/2018 8:51 Results for this W/AUTO DIFF PM [facility]IP MIXER procedure are in the results section. XR ABDOMEN 2 VW AP W STAT 08/04/2018 7:20 Results for this UPRIGHT AND/OR PM SLIP MIXER procedure are in DECUBITUS the results section. after 11/10/[address] Abdomen Pelvis Wo Contrast (08/04/2018 10:48 PM SLIP MIXER) Narrative Performed At EXAM: CT ABDOMEN PELVIS [...] fistulization is identified. No perforation is seen. [facility]-[id number] Procedure Note [facility], Radiology Results Incoming - 08/04/2018 11:00 PM SLIP MIXER EXAM: CT ABDOMEN PELVIS WO CONTRAST CLINICAL [...] fistulization is identified. No perforation is seen. [facility]-[id number] Performing Organization Address City/[facility]/Zipcode Phone Number [facility] [address] [place] [address] Estimated GFR (08/04/2018 8:51 PM SLIP MIXER) Estimated GFR >=90 mL/min/1.73 m2 [facility] Comment: HOSPITAL CatergoryUnitsInterpretation G1 >=90 Normal or high G2 60-89Mildly decreased [id number] to moderately decreased [id number] to severely decreased G4 15-29Severely decreased G5 <15Kidney failure The eGFR was calculated using the Chronic Kidney Disease Epidemiology Collaboration (CKD-EPI) equation. Interpretation is based on recommendations of the National Kidney Foundation-Kidney Disease Outcomes Quality Initiative (NKF-KDOQI) published in 2014. Specimen Plasma specimen Performing Organization Address [facility] Cent[facility]ode Phone Number [facility] DEPARTMENT OF PATHOLOGY AND [address] [place] [id number] GENOMIC MEDICINE [address] [address] CBC with platelet and differential (08/04/2018 8:51 PM SLIP MIXER) WBC 9.05 4.50 - 11.00 k/uL [facility] RBC 4.29 (L) 4.40 - 6.00 m/uL [facility] HGB 14.8 14.0 - 18.0 g/dL [facility] HCT 44.3 41.0 - 51.0 % [facility] MCV 103.3 (H) 82.0 - 100.0 fL [facility] MCH 34.5 (H) 27.0 - 34.0 pg [facility] MCHC 33.4 31.0 - 37.0 g/dL [facility] RDW - SD 49.1 37.0 - 55.0 fL [facility] MPV 11.1 8.8 - 13.2 fL [facility] Platelet count 182 150 - 400 k/uL [facility] Nucleated RBC 0.00 /100 WBC [facility] Neutrophils 58.4 39.0 - 69.0 % [facility] Lymphocytes 27.1 25.0 - 45.0 % [facility] Monocytes 11.9 (H) 0.0 - 10.0 % [facility] Eosinophils 1.5 0.0 - 5.0 % [facility] Basophils 0.7 0.0 - 1.0 % [facility] Immature granulocytes 0.4Comment: "Immature 0.0 - 1.0 % [facility]" [facility] (promyelocytes, myelocytes, metamyelocytes) Specimen Blood Performing Organization Address City/State/Zipcode Phone Number [facility] DEPARTMENT OF PATHOLOGY AND [address] [place] [address] GENOMIC MEDICINE [address] [address] Comprehensive metabolic panel (08/04/2018 8:51 PM SLIP MIXER) Sodium 137 135 - 148 mEq/L [facility] Potassium 4.0 3.5 - 5.0 mEq/L [facility] Chloride 96 (L) 98 - 112 mEq/L [facility] CO2 26 24 - 31 mEq/L [facility] Anion gap 15@ANIO 7 - 15 mEq/L [facility] BUN 11 6 - 20 mg/dL [facility] Creatinine 0.95 0.70 - 1.20 mg/dL [facility] Glucose 128 (H) 65 - 99 mg/dL [facility] Calcium 9.4 8.3 - 10.2 mg/dL [facility] Protein 7.4 6.3 - 8.3 g/dL [facility] Comment: [facility] [place] 4.6-7.0 g/dL 1 week 4.4-7.6 g/dL 7 months-1year5.1-7.3 g/dL 1-2 years5.6-7.5 g/dL >3 years6.0-8.0 g/dL 18-150 6.3-8.3 g/dL Albumin 3.2 (L) 3.5 - 5.0 g/dL [facility] A/G ratio 0.8 0.7 - 3.8 [facility] Alkaline phosphatase 54 40 - 129 U/L [facility] AST 23 10 - 50 U/L [facility] ALT 32 5 - 50 U/L [facility] Total bilirubin 0.6 0.0 - 1.2 mg/dL [facility] Specimen Plasma specimen Performing Organization Address [facility] Centercofl Phone Number [facility] DEPARTMENT OF PATHOLOGY AND [address] [place] [address] GENOMIC MEDICINE [facility] [address] [place] [address] XR Abdomen 2 Vw Ap W Upright And/Or Decubitus (08/04/2018 7:20 PM SLIP MIXER) Narrative Performed At EXAMINATION:XR ABDOMEN 2 VW AP W UPRIGHT AND OR DECUBITUS RADIANT CLINICAL HISTORY:Abd painunspecified COMPARISON:None. FINDINGS: There is gas in the colon. Mildly prominent loops of small bowel in left upper quadrant are nonspecific. There is no free air. IMPRESSION: As above [id number] Procedure Note Interface, Radiology Results Incoming - 08/04/2018 7:28 PM SLIP MIXER EXAMINATION: XR ABDOMEN 2 VW AP W UPRIGHT AND OR DECUBITUS CLINICAL HISTORY: Abd pain unspecified COMPARISON: None. FINDINGS: There is gas in the colon. Mildly prominent loops of small bowel in left upper quadrant are nonspecific. There is no free air. IMPRESSION: As above [id number] Performing Organization Address [facility] Cent[facility]ofl Phone Number [facility] [address] [place] [address] after 11/10/2017 Insurance Payer Benefit Plan / Group Subscriber ID Type Phone Address AETNA AETNA PPO OPEN CHOICE xxxxxxxxxx PPO BCBS BCBS CHOICE PPO/F[employer]ERAL EMPL PPO xxxxxxxxxxxx PPO Advance Directives Patient has advance care planning documents on file. For more information, please contact:Antelmo Posadas[address] [place] [address]
[2018-11-11] MEDS ORDERED: NA CHLORIDE 0.9% 1,000 ML ONE ×2 (08:40→14:20)
[2018-11-11] MEDS ORDERED: LIDOCAINE 2% MPF 5 ML VIAL ONE (13:14)
[2018-11-11] MEDS ORDERED: ONDANSETRON 4 MG/2 ML VIAL ONE ×2 (13:14→13:16)
[2018-11-11] MEDS ORDERED: PROPOFOL 200 MG/20 ML VIAL IV ONE ×2 (13:14→14:41)
[2018-11-11] MEDS ORDERED: FENTANYL CITR 250 MCG/5 ML ONE (13:15)
[2018-11-11] MEDS ORDERED: ROCURONIUM 50 MG/5 ML VIAL IV ONE (13:16)
[2018-11-11] MEDS ORDERED: MIDAZOLAM HCL 2 MG/2 ML INJ ONE ×2 (13:16→14:47)
[2018-11-11] MEDS ORDERED: BUPIVACA 0.25%/EPI 0.0005% MDV 50 ML VIAL ONE (13:19)
[2018-11-11] MEDS ORDERED: GLYCOPYRROLATE 0.2 MG/ML SYR ONE (13:40)
[2018-11-11] MEDS ORDERED: HYDRALAZINE HCL 20 MG/ML VIAL ONE (14:10)
[2018-11-11] MEDS ORDERED: NEOSTIGMINE 1 MG/ML -10 ML VIAL ONE (14:11)
--- NOTE | 2018-11-11 14:26 | P.OP ---
Preoperative diagnosis: Symptomatic Cholelithiasis Postoperative diagnosis: Symptomatic Cholelithiasis Primary procedure: Laparoscopic Cholecystectomy Anesthesia: GETA + Local Estimated blood loss: <2cc Specimen: Gallbladder Findings: Blue dome, distended gallbladder Complications: None Transferred to: Recovery Room Condition: Good
[2018-11-11] MEDS: MEPERIDINE HCL 50 MG/ML AMP ONE ×2 (15:06→15:12)
[2018-11-11] MEDS ORDERED: HYDROCODONE/APAP 7.5/325 MG TAB ONE (16:08)
--- NOTE | 2018-11-12 01:58 | OP ---
Date of Procedure: 11/11/2018 Surgeon: Lan Waller MD, Preoperative Diagnosis: Symptomatic cholelithiasis. Postoperative Diagnosis: Symptomatic cholelithiasis. Procedure Performed: Laparoscopic cholecystectomy. Anesthesia: General endotracheal plus local with 0.25% Marcaine. Estimated Blood Loss: Less than 2 cc. Specimen: Gallbladder. Findings: Blue dome, distended gallbladder. Complications: None. Disposition: Transferred to recovery room in good condition. Procedure In Detail: Informed was obtained. The patient was brought to the operating room, prepped and draped in the usual sterile fashion. After adequate anesthesia was achieved, a supraumbilical ar ea was anesthetized with 0.25% Marcaine, sharply incised. A 5-mm trocar was introduced into the abdo men without evidence of complication. Insufflation was obtained to 15 mmHg at this time. There was no injury to vital structures upon entry into the abdomen. Additional trocar was chosen in the epiga strium. This was similarly anesthetized, sharply incised. A 5-mm trocar was introduced into the abd omen without evidence of complication. Additional trocar was chosen in the right upper quadrant. Th is was similarly anesthetized, sharply incised. A 5-mm trocar was introduced into the abdomen withou t evidence of complication. The umbilical trocar was then up-sized to a 12 mm under direct visualiza tion without evidence of complication. The patient was then positioned in the head up right-side up position and a ratcheted grasper was used to grasp the patient's gallbladder, placed it towards the p atient's right shoulder. Omental attachments were taken off the anterior surface with blunt dissecti on as well as using a minimal amount of electrocautery. Dissection was continued down to expose only 2 structures, which were identified as a cystic duct and cystic artery, obtained a critical view of safety at this time. These structures were both doubly ligated on the proximal side and singly on th e distal side after ensuring the critical view of safety was obtained. The Endo Nita was then used to ligate the 2 structures identified as the cystic duct and cystic artery without evidence of compl ication. There was no leakage from the clips and the gallbladder was removed from the hepatic fossa in its entirety without any bile spillage. There were no additional hemostatic maneuvers required. The gallbladder was then removed from the umbilical trocar, sent off for pathologic examination, and the abdomen was reinsufflated. The area was copiously irrigated multiple times until completely livan r and suctioned dry. The patient was then positioned in neutral position. There were no additional hemostatic maneuvers required on the hepatic fossa. Clips were found to be in good position and the umbilical trocar site was inspected. The umbilical trocar was then removed. The umbilical trocar si te was closed using a Joey-Tana suture passer with a 0 Vicryl in interrupted fashion with good approximation of tissues. The abdomen was then completely desufflated under direct visualization wit hout evidence of complication. All trocars were then removed. All skin incisions were copiously irr igated and closed with a 4-0 Monocryl in a running fashion. Dermabond was placed over the top. The patient tolerated procedure well without evidence of complication and transferred to the PACU in good condition. All counts were correct at the end of the case. EDGARDO/TYSON Voice ID: [id number] Report ID: [id number]
== END 2018-11-11 17:05 | disposition home or self-care (01) ==
LOC: OR 08:05
PROVIDERS: ATTEND Surgery
PROC: 0FT44ZZ Resection of Gallbladder, Percutaneous Endoscopic Approach (ICD-10-PCS; principal; 2018-11-11 10:00)
DX: K80.10 Calculus of gallbladder with chronic cholecystitis without obstruction (principal); E78.5 Hyperlipidemia, unspecified; I10 Essential (primary) hypertension; Z79.899 Other long term (current) drug therapy
CPT/HCPCS: 36415; 80048; 82962; 85025; 88304; J0360; J0694; J2175; J2250; J2405; J2704; J2710; J3010; J7030